=== PATIENT | male | born 1965 | race African-American/Black ===

== ENCOUNTER 2024-03-04 06:28 | Inpatient (IN) | payer OTHER ==
[2024-03-04 06:44] VITALS: BMI 25.8
[2024-03-04] MEDS: ACETAMINOPHEN 500 MG TABLET (FP) PO ONE (07:45)
[2024-03-04] MEDS ORDERED: ACETAMINOPHEN 325 MG TABLET (FP) ONE (07:47)
[2024-03-04 08:32] LABS: INR 1.05 (0.83-1.09); PROTHROMBIN TIME (PATIENT) 12.2 SEC (9.7-13.0)
[2024-03-04 08:35] LABS: ACTIVATED PTT 29.7 SECONDS (25.2-36.5)
[2024-03-04 08:40] LABS: BASO % 0.4 % (0-2.0); EOS % 0.8 % (0-4.5); HEMOGLOBIN 12.3 GM/dL (11.7-16.9); LYMPH % 23.5 % (8-40); MCH 29.8 pg (25.7-33.7); MCHC 33.2 g/dl (32.0-35.9); MEAN CELL VOLUME 89.7 fl (80-96); MEAN PLT VOLUME 8.4 fl (7.5-11.1); MONO % 10.5 % (3.8-10.2); NEUT % 64.8 % (42.8-82.8); PLATELET COUNT 201 10^3/uL (134-434); RBC 4.13 M/mm3 (4.00-5.60); RDW 13.3 % (11.9-15.9); WHITE BLOOD COUNT 8.9 K/mm3 (4.0-10.0)
[2024-03-04 08:47] LABS: N-TERMINAL BNP 1737.9 pg/ml (5-125)
[2024-03-04 09:08] LABS: BILIRUBIN,TOTAL 0.4 mg/dL (0.2-1); BLOOD UREA NITROGEN 15.2 mg/dL (7-18); CALCIUM 8.7 mg/dL (8.5-10.1); CREATININE 0.9 mg/dL (0.55-1.3); POTASSIUM 4.3 mmol/L (3.5-5.1); TOT PROT 6.5 g/dl (6.4-8.2)
[2024-03-04] MEDS ORDERED: morphine SULFATE 4 MG/ML VIAL ONE (12:00)
[2024-03-04] MEDS ORDERED: KETOROLAC TROMETHAMINE 15 MG/ML VIAL ONE (12:03)
[2024-03-04] MEDS ORDERED: ceFAZolin SODIUM 1 GM VIAL ONE (12:03)
[2024-03-04] MEDS: CEFAZOLIN 1 GM in DEXTROSE 5%-WATER - 50 ML IVPB ONE (12:06)
[2024-03-04] MEDS: KETOROLAC TROMETHAMINE 15 MG/ML VIAL IVPUSH ONE (12:11)
[2024-03-04] MEDS ORDERED: FUROSEMIDE 20 MG TABLET (FP) PO SCH (14:30)
[2024-03-04] MEDS ORDERED: FUROSEMIDE 40 MG/4 ML INJECTABLE VIAL ONE (14:54)
[2024-03-04] MEDS: FUROSEMIDE 40 MG/4 ML INJECTABLE VIAL IVPUSH SCH (14:54)
[2024-03-04] MEDS: INSULIN ASPART SLIDING SCALE (NOVOLOG) 1 VIAL SQ SCH (16:42)
[2024-03-04] MEDS: CEFAZOLIN SODIUM 2 GM in DEXTROSE 5%-WATER 100 ML IVPB SCH (18:24)
[2024-03-05] MEDS: ACETAMINOPHEN 1000 MG/100 ML BAG IVPB PRN (00:56)
[2024-03-05 07:27] LABS: HEMATOCRIT 34.4 % (35.4-49); HEMOGLOBIN 11.6 GM/dL (11.7-16.9); MCH 30.3 pg (25.7-33.7); MCHC 33.7 g/dl (32.0-35.9); MEAN CELL VOLUME 89.9 fl (80-96); MEAN PLT VOLUME 8.4 fl (7.5-11.1); PLATELET COUNT 186 10^3/uL (134-434); RBC 3.83 M/mm3 (4.00-5.60); RDW 13.7 % (11.9-15.9); WHITE BLOOD COUNT 7.9 K/mm3 (4.0-10.0)
[2024-03-05 07:50] LABS: POTASSIUM 4.1 mmol/L (3.5-5.1)
[2024-03-05 07:52] LABS: CALCIUM 8.5 mg/dL (8.5-10.1)
[2024-03-05 07:53] LABS: ALBUMIN 2.8 g/dl (3.4-5.0); BLOOD UREA NITROGEN 18.7 mg/dL (7-18); MAGNESIUM 1.9 mg/dL (1.8-2.4)
[2024-03-05 07:55] LABS: PHOSPHOROUS 3.5 mg/dL (2.5-4.9)
[2024-03-05 07:56] LABS: CREATININE 0.9 mg/dL (0.55-1.3)
[2024-03-05 07:57] LABS: BILIRUBIN,TOTAL 0.5 mg/dL (0.2-1); TOT PROT 6.2 g/dl (6.4-8.2)
[2024-03-05 07:58] LABS: CHOLESTEROL 232 mg/dL (50-200)
[2024-03-05 07:59] LABS: LDL CHOLESTEROL (ONLY SJRH) 143 mg/dL (5-100)
[2024-03-05] MEDS ORDERED: FUROSEMIDE 40 MG/4 ML INJECTABLE VIAL IVPUSH ONE (08:00)
[2024-03-05 08:02] LABS: HDL CHOLESTEROL 76 mg/dL (40-60)
[2024-03-05] MEDS: FUROSEMIDE 40 MG/4 ML INJECTABLE VIAL IVPUSH ONE (11:09)
[2024-03-05] MEDS: ENOXAPARIN NA (PORCINE) 40 MG/0.4 ML DISP.SYRIN SQ SCH (11:10)
[2024-03-05] MEDS: ATORVASTATIN CA 20 MG TABLET (FP) PO SCH (21:13)
[2024-03-05] MEDS ORDERED: INSULIN (NOVOLOG) ASPART 100 UNITS/ML 10ML VIAL ONE (21:19)
[2024-03-06] MEDS ORDERED: INSULIN (NOVOLOG) ASPART 100 UNITS/ML 10ML VIAL ONE (06:48)
[2024-03-06 08:26] LABS: BASO % 0.3 % (0-2.0); EOS % 1.3 % (0-4.5); HEMATOCRIT 37.4 % (35.4-49); HEMOGLOBIN 12.6 GM/dL (11.7-16.9); LYMPH % 27.6 % (8-40); MCH 30.2 pg (25.7-33.7); MCHC 33.8 g/dl (32.0-35.9); MEAN CELL VOLUME 89.3 fl (80-96); MEAN PLT VOLUME 8.8 fl (7.5-11.1); MONO % 11.1 % (3.8-10.2); NEUT % 59.7 % (42.8-82.8); PLATELET COUNT 224 10^3/uL (134-434); RBC 4.19 M/mm3 (4.00-5.60); RDW 13.5 % (11.9-15.9); WHITE BLOOD COUNT 6.7 K/mm3 (4.0-10.0)
[2024-03-06 08:43] LABS: BLOOD UREA NITROGEN 15.8 mg/dL (7-18); CALCIUM 8.6 mg/dL (8.5-10.1)
[2024-03-06 08:48] LABS: CREATININE 0.9 mg/dL (0.55-1.3)
[2024-03-06] MEDS: FUROSEMIDE 40 MG/4 ML INJECTABLE VIAL IVPUSH SCH (11:36)
[2024-03-07] MEDS: MELATONIN 5 MG TABLETS PO ONE (00:06)
[2024-03-07 08:29] LABS: BASO % 0.3 % (0-2.0); EOS % 1.6 % (0-4.5); HEMATOCRIT 34.4 % (35.4-49); HEMOGLOBIN 11.8 GM/dL (11.7-16.9); LYMPH % 28.7 % (8-40); MCH 30.6 pg (25.7-33.7); MCHC 34.4 g/dl (32.0-35.9); MEAN CELL VOLUME 88.9 fl (80-96); MEAN PLT VOLUME 8.5 fl (7.5-11.1); MONO % 14.2 % (3.8-10.2); NEUT % 55.2 % (42.8-82.8); PLATELET COUNT 227 10^3/uL (134-434); RBC 3.87 M/mm3 (4.00-5.60); RDW 13.6 % (11.9-15.9); WHITE BLOOD COUNT 7.3 K/mm3 (4.0-10.0)
[2024-03-07 08:30] LABS: POTASSIUM 4.4 mmol/L (3.5-5.1)
[2024-03-07 09:20] LABS: CALCIUM 9.1 mg/dL (8.5-10.1)
[2024-03-07 09:24] LABS: CREATININE 0.9 mg/dL (0.55-1.3)
[2024-03-08 09:07] LABS: HEMATOCRIT 40.9 % (35.4-49); HEMOGLOBIN 13.4 GM/dL (11.7-16.9); MCH 29.7 pg (25.7-33.7); MCHC 32.9 g/dl (32.0-35.9); MEAN CELL VOLUME 90.4 fl (80-96); MEAN PLT VOLUME 8.1 fl (7.5-11.1); PLATELET COUNT 264 10^3/uL (134-434); RBC 4.52 M/mm3 (4.00-5.60); RDW 13.7 % (11.9-15.9); WHITE BLOOD COUNT 8.6 K/mm3 (4.0-10.0)
[2024-03-08 09:28] LABS: POTASSIUM 4.5 mmol/L (3.5-5.1)
[2024-03-08 09:34] LABS: CALCIUM 9.5 mg/dL (8.5-10.1)
[2024-03-08 09:35] LABS: ALBUMIN 3.1 g/dl (3.4-5.0); BLOOD UREA NITROGEN 17.6 mg/dL (7-18)
[2024-03-08 09:38] LABS: CREATININE 0.9 mg/dL (0.55-1.3)
[2024-03-08 09:39] LABS: BILIRUBIN,TOTAL 0.5 mg/dL (0.2-1); TOT PROT 7.4 g/dl (6.4-8.2)
[2024-03-09 09:39] LABS: HEMOGLOBIN 13.5 GM/dL (11.7-16.9); MCH 29.8 pg (25.7-33.7); MEAN CELL VOLUME 90.5 fl (80-96); MEAN PLT VOLUME 8.1 fl (7.5-11.1); PLATELET COUNT 266 10^3/uL (134-434); RBC 4.53 M/mm3 (4.00-5.60); RDW 13.4 % (11.9-15.9)
[2024-03-09 10:01] LABS: POTASSIUM 4.3 mmol/L (3.5-5.1)
[2024-03-09 10:19] LABS: CALCIUM 9.3 mg/dL (8.5-10.1)
[2024-03-09 10:20] LABS: ALBUMIN 3.2 g/dl (3.4-5.0); BLOOD UREA NITROGEN 19.9 mg/dL (7-18)
[2024-03-09 10:23] LABS: TOT PROT 7.3 g/dl (6.4-8.2)
[2024-03-09] MEDS: IBUPROFEN 600 MG TABLET (FP) PO PRN (11:28)
[2024-03-09] MEDS: oxyCODONE HCL 5 MG TABLET PO PRN (20:31)
[2024-03-10 09:23] LABS: BASO % 0.5 % (0-2.0); EOS % 3.6 % (0-4.5); HEMATOCRIT 38.7 % (35.4-49); LYMPH % 25.9 % (8-40); MCH 30.1 pg (25.7-33.7); MCHC 33.6 g/dl (32.0-35.9); MEAN CELL VOLUME 89.5 fl (80-96); MONO % 12.8 % (3.8-10.2); NEUT % 57.2 % (42.8-82.8); PLATELET COUNT 257 10^3/uL (134-434); RBC 4.32 M/mm3 (4.00-5.60); RDW 13.3 % (11.9-15.9); WHITE BLOOD COUNT 6.1 K/mm3 (4.0-10.0)
[2024-03-10 09:47] LABS: POTASSIUM 4.7 mmol/L (3.5-5.1)
[2024-03-10 10:04] LABS: CALCIUM 9.2 mg/dL (8.5-10.1)
[2024-03-10 10:05] LABS: BLOOD UREA NITROGEN 21.3 mg/dL (7-18)
[2024-03-10 10:09] LABS: CREATININE 0.9 mg/dL (0.55-1.3)
[2024-03-10 11:28] LABS: ERYTHROCYTE SEDIMENTATION RATE 83 mm/hr (0-20)
[2024-03-10] MEDS: ACETAMINOPHEN 325 MG TABLET (FP) PO SCH (14:37)
[2024-03-10] MEDS: oxyCODONE HCL 5 MG TABLET PO PRN (18:19)
[2024-03-10] MEDS ORDERED: IBUPROFEN 600 MG TABLET (FP) PO SCH (22:00)
[2024-03-11 15:21] LABS: HEMATOCRIT 39.6 % (35.4-49); HEMOGLOBIN 13.4 GM/dL (11.7-16.9); MCHC 33.7 g/dl (32.0-35.9); MEAN CELL VOLUME 88.8 fl (80-96); MEAN PLT VOLUME 7.7 fl (7.5-11.1); PLATELET COUNT 271 10^3/uL (134-434); RBC 4.46 M/mm3 (4.00-5.60); RDW 13.6 % (11.9-15.9); WHITE BLOOD COUNT 5.6 K/mm3 (4.0-10.0)
[2024-03-11 15:38] LABS: POTASSIUM 4.7 mmol/L (3.5-5.1)
[2024-03-11 15:39] LABS: CALCIUM 9.2 mg/dL (8.5-10.1)
[2024-03-11 15:40] LABS: BLOOD UREA NITROGEN 24.4 mg/dL (7-18)
[2024-03-11 17:35] LABS: ERYTHROCYTE SEDIMENTATION RATE 85 mm/hr (0-20)
[2024-03-12 08:18] LABS: HEMATOCRIT 36.4 % (35.4-49); HEMOGLOBIN 12.4 GM/dL (11.7-16.9); MCH 30.1 pg (25.7-33.7); MEAN CELL VOLUME 88.4 fl (80-96); MEAN PLT VOLUME 7.6 fl (7.5-11.1); PLATELET COUNT 252 10^3/uL (134-434); RBC 4.12 M/mm3 (4.00-5.60); RDW 13.3 % (11.9-15.9); WHITE BLOOD COUNT 5.1 K/mm3 (4.0-10.0)
[2024-03-12 08:36] LABS: POTASSIUM 4.5 mmol/L (3.5-5.1)
[2024-03-12 08:39] LABS: ALBUMIN 2.9 g/dl (3.4-5.0); BLOOD UREA NITROGEN 19.7 mg/dL (7-18)
[2024-03-12 08:43] LABS: BILIRUBIN,TOTAL 0.3 mg/dL (0.2-1); TOT PROT 6.7 g/dl (6.4-8.2)
[2024-03-12] MEDS ORDERED: INSULIN ASPART SLIDING SCALE (NOVOLOG) 1 VIAL SQ ONE ×2 (11:45→16:55)
[2024-03-13] MEDS: IBUPROFEN 600 MG TABLET (FP) PO PRN (04:30)
[2024-03-13 08:45] LABS: HEMATOCRIT 36.6 % (35.4-49); HEMOGLOBIN 12.4 GM/dL (11.7-16.9); MCH 30.1 pg (25.7-33.7); MEAN CELL VOLUME 88.6 fl (80-96); MEAN PLT VOLUME 7.6 fl (7.5-11.1); PLATELET COUNT 244 10^3/uL (134-434); RBC 4.13 M/mm3 (4.00-5.60); RDW 13.3 % (11.9-15.9); WHITE BLOOD COUNT 5.2 K/mm3 (4.0-10.0)
[2024-03-13 09:12] LABS: POTASSIUM 4.7 mmol/L (3.5-5.1)
[2024-03-13 09:18] LABS: ALBUMIN 2.9 g/dl (3.4-5.0); BLOOD UREA NITROGEN 19.2 mg/dL (7-18); CALCIUM 9.1 mg/dL (8.5-10.1)
[2024-03-13 09:22] LABS: BILIRUBIN,TOTAL 0.5 mg/dL (0.2-1); TOT PROT 6.7 g/dl (6.4-8.2)
[2024-03-13 10:59] VITALS: BP 142/88; PULSE 70; RESP 18; TEMP 97.9
== END 2024-03-13 18:38 | disposition home or self-care (01) | DRG 383 ==
LOC: JER 06:28 → JERBED 12:01 → J7W 15:21 → J6S 03-06 11:01
PROVIDERS: ADMIT Internal Medicine; ATTEND Internal Medicine
DX: L03.116 Cellulitis of left lower limb (principal); I50.33 Acute on chronic diastolic (congestive) heart failure; E11.628 Type 2 diabetes mellitus with other skin complications; E11.9 Type 2 diabetes mellitus without complications; F17.210 Nicotine dependence, cigarettes, uncomplicated; M60.9 Myositis, unspecified; E78.5 Hyperlipidemia, unspecified
CPT/HCPCS: 36415; 71045-TC-FY; 73590-TC-LT-FY; 73702-TC-RT; 73720-LT; 80048; 80053; 80061; 82550; 82962; 83036; 83735; 83880; 84100; 84439; 84443; 85025; 85027; 85610; 85651; 85730; 86140; 87077; 87081; 93306-TC; 93970-TC; 97116-GP; 97161-GP; 99285-25; J0131; Q9967